=== PATIENT | male | born 1940 | race Caucasian/White ===

== ENCOUNTER 2022-07-28 09:59 | Emergency (ER) | payer MEDICARE, MEDICAID, SELFPAY ==
[2022-07-28 10:22] VITALS: BP 179/99; PULSE 63; RESP 19; TEMP 36.6; O2SAT 98; BMI 20.2
--- NOTE | 2022-07-28 12:08 | ED.GENADULT ---
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 Reports just after the pain began he developed a shingles rash. He states that she did not receive any antiviral medications. Denies fevers, chills, chest pain, shortness of breath, difficulty breathing, cough, nausea, vomiting, dysuria, urinary frequency, hematuria, constipation, diarrhea, bloody or dark stools. Related Data Previous Rx's Medication Instructions Recorded prednisone 20 mg tablet 40 mg PO DAILY 5 days #10 tabs 07/24/22 gabapentin 300 mg capsule 300 mg PO TID #10 caps 07/28/22 Allergies Allergy/AdvReac Type Severity Reaction Status Date / Time No Known Allergies Allergy Unverified 07/24/22 12:49 [No Known Allergies*] Review of Systems Review of Systems: Constitutional: No weight loss, fever, chills, weakness or fatigue. Skin: Positive healing rash to right abdomen Cardiovascular: No chest pain, chest pressure or chest discomfort. No palpitations or pedal edema. Respiratory: No shortness of breath, cough or sputum production. Gastrointestinal: No anorexia, nausea, vomiting or diarrhea. Positive superficial abdominal pain. No blood in stool. Genitourinary: No burning micturition. No urinary frequency or incontinence. Musculoskeletal: No muscle pain, back pain, joint pain or stiffness. Psychiatric: No depression or anxiety. Yes all other systems are reviewed and are negative PMFSH Past Medical History Attestation statement: The following information was validated with the patient. Source: old records reviewed Medical History Right upper quadrant pain Social History Social History Advance Directives: No Advance Directives Information Provided: Yes Physical Exam ED Vital Signs: Vital Signs - 24 hr 07/28/22 10:22 Temperature 98 F Pulse Rate 63 Respiratory Rate 19 Blood Pressure 179/99 H Pulse Oximetry 98 Oxygen Delivery Method Room Air BMI result Body Mass Index 20.2 Appearance: Alert.?Oriented to person, place and time. No acute distress.?Normal affect. Eyes: Pupils equal, round and reactive to light.? ENT: Pharynx normal.?? Neck: Normal inspection.? Neck supple.?? CVS: Heart sounds normal. Normal heart rate and rhythm.? Pulses normal.?? Respiratory: No respiratory distress.? Lung sounds clear to auscultation bilaterally?? Abdomen: Soft and non-tender. Normoactive bowel sounds. No CVA tenderness Skin: Skin warm and dry.? Normal skin color.? Healing herpes zoster rash to right abdomen and right flank. Extremities: No lower extremity edema.? Neuro: Moves all extremities spontaneously. Sensation intact bilaterally. No focal neuro deficits. Ambulates with normal steady gait. Course Course Course Narrative: Patient is an 81-year-old male with no reported past medical history presenting to emergency department for evaluation of a right abdominal pain. Pain started just before zoster rash by his report, is a constant pain that is described as an ache with sharp shooting pains. He has tried Tylenol to help with the pain but has not been beneficial. Abdominal examination is benign. Low suspicion for pyelonephritis, appendicitis, hydronephrosis, nephrolithiasis. He is afebrile without tachycardia tachypnea or hypoxia. I suspect that pain is secondary to post herpetic neuralgia. Upon review of medical record patient was seen at urgent care 4 days ago for evaluation of similar complaints, and this rash being present. He was given a prescription for prednisone to take daily, and outpatient ultrasound of the abdomen was ordered to rule out occult pathology. It is not certain whether patient was actually diagnosed with zoster at the time of onset, however it does follow a dermatome T10-T11. When asked, he states that the prednisone has not given him any relief. Patient to be discharged home with a prescription for gabapentin, outpatient follow-up with primary care provider, reviewed worrisome signs and symptoms to return back to emergency department for. All questions were answered. Patient discharged home in stable condition. Discharge Plan Discharge Clinical Impression: Post herpetic neuralgia Patient Disposition: Home, Self-Care Instructions: Shindestinee (ED) Additional Instructions: You have been given a new prescription for gabapentin take a single dose, 300 mg today. Tomorrow take 1 capsule, 300 mg, twice daily in the morning and in the evening. On Thursday take 1 capsule, 300 mg, 3 times daily. After that you may take a syncopal episode times daily. Follow-up with your primary care provider within 1 week Return to the emergency department any new or worsening symptoms or concerns. Le cooney dado christiano nueva receta de gabapentina, tome christiano dosis ?yogesh, 300 mg hoy. Ma?steffi tome 1 c?psula, 300 mg, dos veces al d?a por la ma?steffi y por la noche. El mi?rcoles tome 1 c?psula, 300 mg, 3 veces al d?a. Despu?s de eso, puede tener un episodio sincopal varias veces al d?a. Seguimiento con kelly proveedor de atenci?n primaria dentro de 1 semana Devuelva al departamento de emergencias cualquier s?ntoma o inquietud nueva o que empeore. Prescriptions: New gabapentin 300 mg capsule 300 mg PO TID Qty: 10 0RF Rx Instructions: 300 mg once on day one, 300 mg twice daily on day 2, and 300 mg 3 times daily on day 3, then 300 mg 3 times daily following No Action prednisone 20 mg tablet 40 mg PO DAILY 5 Days Qty: 10 0RF Interventions: ED Discharge Assessment Last Done: 07/28/22 12:58 Discharge Date/Time: 07/28/22 12:59 Print Language: Guyanese
== END 2022-07-28 12:59 | disposition home or self-care (01) ==
PROVIDERS: Emergency Provider Emergency Medicine Emergency Medical Services
DX: B02.29 Other postherpetic nervous system involvement (principal); R10.9 Unspecified abdominal pain
CPT/HCPCS: 99282; 99283